=== PATIENT | male | born 1935 | race Asian ===

== ENCOUNTER 2019-08-09 07:51 | Inpatient (IN) | payer MEDICARE, OTHER ==
[~2019-08-09] VITALS: Ht 167.6 cm; Wt 55.6 kg
[~2019-08-09 07:51] MED LIST: ALLO100T PO; ASPI-556 PO; FOLI1 PO; MONT5TAB13 PO; SIMV-259 PO; TERA1CAP7 PO
[2019-08-09] MEDS ORDERED: SODIUM CHLORIDE 0.9% 1,000 ML IV ONE ×3 (08:15→10:15)
[2019-08-09] MEDS ORDERED: LOPERAMIDE HCL 2 MG CAPSULE PO ONE (08:15)
[2019-08-09] MEDS ORDERED: ACETAMINOPHEN 1000 MG/ISO-OSM 100 ML IV ONE (08:15)
[2019-08-09 09:23] LABS: BASOPHILS % (AUTO) 0.3 % (0.0-2.0); EOSINOPHILS % (AUTO) 0.2 % (1.0-6.0); HEMATOCRIT 38.8 % (41-53); HEMOGLOBIN 12.2 g/dL (13.5-17.5); LYMPHOCYTES # (AUTO) 0.6 K/uL (1.0-4.8); MEAN CORPUSCULAR HEMOGLOBIN 23.9 pg (26.0-34.0); MEAN CORPUSCULAR HGB CONC 31.3 G/dL (31.0-37.0); MEAN CORPUSCULAR VOLUME 76 fL (80-100); MONOCYTES % (AUTO) 12.9 % (2.0-9.0); NEUTROPHILS # (AUTO) 6.1 K/uL (1.8-7.7); NEUTROPHILS % (AUTO) 78.6 % (40.0-70.0); PLATELET COUNT (AUTO) 156 K/uL (150-450); RED BLOOD CELL COUNT(AUTO) 5.09 MIL/uL (4.50-5.90); RED CELL DISTRIBUTION WIDTH 14.5 % (11.5-14.5)
[2019-08-09 09:32] LABS: ANION GAP 10 mmol/L (8-16); CALCIUM, TOTAL 8.5 mg/dL (8.8-10.5); CARBON DIOXIDE 25 mmol/L (22-29); CHLORIDE 106 mmol/L (98-107); CREATININE 1.39 mg/dL (0.60-1.30); GLOMERULAR FILTR. RATE CALC 49 mL/min (>60); GLUCOSE,RANDOM 163 mg/dL (70-110); POTASSIUM 4.1 mmol/L (3.5-5.1); SODIUM SERUM 141 mmol/L (136-145); UREA NITROGEN, BLOOD 49 mg/dL (7-18)
[2019-08-09 09:34] LABS: PROTHROMBIN TIME 10.5 SEC (9.4-11.6)
[2019-08-09 09:39] LABS: ALANINE AMINOTRANSFERASE 76 U/L (12-78); ALKALINE PHOSPHATASE 50 U/L (46-116); ASPARTATE AMINOTRANSFERASE 52 U/L (15-37); BILIRUBIN,TOTAL 1.1 mg/dL (0.1-1.0); LIPASE 232 U/L (73-393); TOTAL PROTEIN, SERUM 6.3 g/dL (6.4-8.2)
[2019-08-09 09:41] LABS: LACTIC ACID 3.3 mmol/L (0.4-2.0)
[2019-08-09] MEDS ORDERED: ONDANSETRON HCL 4 MG/2 ML VIAL IVP PRN ×2 (10:15→20:00)
[2019-08-09] MEDS ORDERED: ACETAMINOPHEN 325 MG TABLET PO PRN ×2 (10:15→20:00)
[2019-08-09 16:57] VITALS: BP 136/77
[2019-08-09] MEDS ORDERED: INFLUENZA VIRUS VACCINE QVS 2019-20 (3YR+)/PF 60 MCG/0.5 ML SYRINGE IM ONE (19:00)
[2019-08-09] MEDS ORDERED: MORPHINE SULFATE 2 MG/ML SYRINGE IVP PRN (20:00)
[2019-08-09] MEDS ORDERED: HYDROCODONE/ACETAMINOPHEN 5-325 MG TABLET PO PRN (20:00)
[2019-08-09] MEDS ORDERED: BISACODYL 10 MG RECTAL RECTAL SUPPOSITORY PR PRN (20:00)
[2019-08-09] MEDS ORDERED: MAGNESIUM HYDROXIDE SUSPENSION 30 ML UDCUP PO PRN (20:00)
[2019-08-09] MEDS ORDERED: ZOLPIDEM TARTRATE 5 MG TABLET PO PRN (20:00)
[2019-08-09 20:12] VITALS: BP 104/59
[2019-08-09] MEDS: PANTOPRAZOLE SODIUM 40 MG/VIAL IVP SCH (21:17)
[2019-08-09] MEDS: ALLOPURINOL 100 MG TABLET PO SCH (21:17)
[2019-08-09] MEDS: DOCUSATE SODIUM 100 MG CAPSULE PO SCH (21:18)
[2019-08-09] MEDS: PIPERACILLIN SODIUM/TAZOBACTAM 2.25 GM in DEXTROSE 5%-WATER 50 ML IV SCH (21:34)
[2019-08-10] VITALS: BP 111/56
[2019-08-10] MEDS: PIPERACILLIN SODIUM/TAZOBACTAM 2.25 GM in DEXTROSE 5%-WATER 50 ML IV SCH ×4 (04:56→21:54)
[2019-08-10 05:09] VITALS: BP 107/57
[2019-08-10 08:10] VITALS: BP 130/59
[2019-08-10] MEDS: DOCUSATE SODIUM 100 MG CAPSULE PO SCH ×2 (08:39→20:35)
[2019-08-10] MEDS: ALLOPURINOL 100 MG TABLET PO SCH ×2 (08:42→20:35)
[2019-08-10] MEDS: SIMVASTATIN 10 MG TABLET PO SCH (08:42)
[2019-08-10] MEDS: MONTELUKAST SODIUM 10 MG TABLET PO SCH (08:42)
[2019-08-10] MEDS: FOLIC ACID 1 MG TABLET PO SCH (08:43)
[2019-08-10] MEDS: TERAZOSIN HCL 2 MG CAPSULE PO SCH (08:43)
[2019-08-10] MEDS: PANTOPRAZOLE SODIUM 40 MG/VIAL IVP SCH ×2 (08:43→20:35)
[2019-08-10 11:39] VITALS: BP 100/58
[2019-08-10 15:18] VITALS: BP 107/59
[2019-08-10 17:23] LABS: BASOPHILS % (AUTO) 0.3 % (0.0-2.0); EOSINOPHILS % (AUTO) 1.9 % (1.0-6.0); HEMATOCRIT 30.9 % (41-53); LYMPHOCYTES % (AUTO) 20.7 % (22.0-44.0); MEAN CORPUSCULAR HEMOGLOBIN 24.6 pg (26.0-34.0); MEAN CORPUSCULAR HGB CONC 32.2 G/dL (31.0-37.0); MEAN CORPUSCULAR VOLUME 76 fL (80-100); MONOCYTES # (AUTO) 0.5 K/uL (0.1-1.0); MONOCYTES % (AUTO) 10.5 % (2.0-9.0); NEUTROPHILS # (AUTO) 3.1 K/uL (1.8-7.7); NEUTROPHILS % (AUTO) 66.6 % (40.0-70.0); PLATELET COUNT (AUTO) 116 K/uL (150-450); RED BLOOD CELL COUNT(AUTO) 4.06 MIL/uL (4.50-5.90); RED CELL DISTRIBUTION WIDTH 14.6 % (11.5-14.5)
[2019-08-10 17:37] LABS: ANION GAP 2 mmol/L (8-16); CALCIUM, TOTAL 7.8 mg/dL (8.8-10.5); CARBON DIOXIDE 28 mmol/L (22-29); CHLORIDE 110 mmol/L (98-107); CREATININE 1.04 mg/dL (0.60-1.30); GLOMERULAR FILTR. RATE CALC > 60 mL/min (>60); GLUCOSE,RANDOM 105 mg/dL (70-110); POTASSIUM 4.1 mmol/L (3.5-5.1); SODIUM SERUM 140 mmol/L (136-145); UREA NITROGEN, BLOOD 17 mg/dL (7-18)
[2019-08-10 17:45] LABS: ALANINE AMINOTRANSFERASE 50 U/L (12-78); ALBUMIN 2.7 g/dL (3.4-5.0); ALKALINE PHOSPHATASE 41 U/L (46-116); ASPARTATE AMINOTRANSFERASE 32 U/L (15-37); BILIRUBIN,TOTAL 1.1 mg/dL (0.1-1.0); TOTAL PROTEIN, SERUM 5.5 g/dL (6.4-8.2)
[2019-08-10 19:45] VITALS: BP 107/67
[2019-08-11] VITALS (7 sets, daily range): BP systolic 85–124; BP diastolic 44–74
[2019-08-11] MEDS: PIPERACILLIN SODIUM/TAZOBACTAM 2.25 GM in DEXTROSE 5%-WATER 50 ML IV SCH ×4 (04:23→22:04)
[2019-08-11 06:11] LABS: BASOPHILS % (AUTO) 0.5 % (0.0-2.0); EOSINOPHILS % (AUTO) 2.8 % (1.0-6.0); HEMATOCRIT 29.4 % (41-53); HEMOGLOBIN 9.4 g/dL (13.5-17.5); LYMPHOCYTES # (AUTO) 0.7 K/uL (1.0-4.8); LYMPHOCYTES % (AUTO) 16.3 % (22.0-44.0); MEAN CORPUSCULAR HEMOGLOBIN 24.3 pg (26.0-34.0); MEAN CORPUSCULAR VOLUME 76 fL (80-100); MONOCYTES # (AUTO) 0.4 K/uL (0.1-1.0); MONOCYTES % (AUTO) 10.6 % (2.0-9.0); NEUTROPHILS % (AUTO) 69.8 % (40.0-70.0); PLATELET COUNT (AUTO) 113 K/uL (150-450); RED BLOOD CELL COUNT(AUTO) 3.86 MIL/uL (4.50-5.90); RED CELL DISTRIBUTION WIDTH 14.5 % (11.5-14.5)
[2019-08-11 06:26] LABS: ALANINE AMINOTRANSFERASE 39 U/L (12-78); ALBUMIN 2.4 g/dL (3.4-5.0); ALKALINE PHOSPHATASE 40 U/L (46-116); ANION GAP 8 mmol/L (8-16); ASPARTATE AMINOTRANSFERASE 27 U/L (15-37); BILIRUBIN,TOTAL 1.1 mg/dL (0.1-1.0); CALCIUM, TOTAL 7.7 mg/dL (8.8-10.5); CARBON DIOXIDE 26 mmol/L (22-29); CHLORIDE 109 mmol/L (98-107); CREATININE 1.09 mg/dL (0.60-1.30); GLUCOSE,RANDOM 106 mg/dL (70-110); POTASSIUM 3.4 mmol/L (3.5-5.1); SODIUM SERUM 143 mmol/L (136-145); TOTAL PROTEIN, SERUM 5.2 g/dL (6.4-8.2); UREA NITROGEN, BLOOD 12 mg/dL (7-18)
[2019-08-11 06:32] LABS: GLOMERULAR FILTR. RATE CALC > 60 mL/min (>60)
[2019-08-11] MEDS: ALLOPURINOL 100 MG TABLET PO SCH ×2 (09:00→20:20)
[2019-08-11] MEDS: DOCUSATE SODIUM 100 MG CAPSULE PO SCH ×2 (09:00→20:20)
[2019-08-11] MEDS: PANTOPRAZOLE SODIUM 40 MG/VIAL IVP SCH ×2 (09:35→20:20)
[2019-08-11] MEDS ORDERED: SODIUM CHLORIDE 0.9% 1,000 ML IV ONE ×3 (11:00→11:18)
[2019-08-11] MEDS: MONTELUKAST SODIUM 10 MG TABLET PO SCH (14:11)
[2019-08-11] MEDS: FOLIC ACID 1 MG TABLET PO SCH (14:11)
[2019-08-11] MEDS: SIMVASTATIN 10 MG TABLET PO SCH (14:11)
[2019-08-11] MEDS: TERAZOSIN HCL 2 MG CAPSULE PO SCH (14:14)
[2019-08-12 00:10] VITALS: BP 103/53
[2019-08-12] MEDS: PIPERACILLIN SODIUM/TAZOBACTAM 2.25 GM in DEXTROSE 5%-WATER 50 ML IV SCH ×2 (04:45→10:20)
[2019-08-12 04:51] VITALS: BP 121/70
[2019-08-12 06:49] LABS: BASOPHILS % (AUTO) 0.3 % (0.0-2.0); EOSINOPHILS % (AUTO) 2.5 % (1.0-6.0); HEMATOCRIT 27.8 % (41-53); LYMPHOCYTES # (AUTO) 0.8 K/uL (1.0-4.8); LYMPHOCYTES % (AUTO) 14.7 % (22.0-44.0); MEAN CORPUSCULAR HEMOGLOBIN 24.4 pg (26.0-34.0); MEAN CORPUSCULAR HGB CONC 32.3 G/dL (31.0-37.0); MEAN CORPUSCULAR VOLUME 76 fL (80-100); MONOCYTES # (AUTO) 0.6 K/uL (0.1-1.0); MONOCYTES % (AUTO) 10.7 % (2.0-9.0); NEUTROPHILS # (AUTO) 3.9 K/uL (1.8-7.7); NEUTROPHILS % (AUTO) 71.8 % (40.0-70.0); PLATELET COUNT (AUTO) 120 K/uL (150-450); RED BLOOD CELL COUNT(AUTO) 3.68 MIL/uL (4.50-5.90); RED CELL DISTRIBUTION WIDTH 14.2 % (11.5-14.5)
[2019-08-12 07:06] LABS: ALANINE AMINOTRANSFERASE 38 U/L (12-78); ALBUMIN 2.5 g/dL (3.4-5.0); ALKALINE PHOSPHATASE 40 U/L (46-116); ANION GAP 6 mmol/L (8-16); ASPARTATE AMINOTRANSFERASE 26 U/L (15-37); CALCIUM, TOTAL 7.9 mg/dL (8.8-10.5); CARBON DIOXIDE 27 mmol/L (22-29); CHLORIDE 107 mmol/L (98-107); CREATININE 1.05 mg/dL (0.60-1.30); GLUCOSE,RANDOM 102 mg/dL (70-110); POTASSIUM 3.5 mmol/L (3.5-5.1); SODIUM SERUM 140 mmol/L (136-145); TOTAL PROTEIN, SERUM 5.2 g/dL (6.4-8.2); UREA NITROGEN, BLOOD 9 mg/dL (7-18)
[2019-08-12 07:10] LABS: GLOMERULAR FILTR. RATE CALC > 60 mL/min (>60)
[2019-08-12 07:26] VITALS: BP 132/64
[2019-08-12] MEDS: DOCUSATE SODIUM 100 MG CAPSULE PO SCH ×2 (08:15→20:30)
[2019-08-12] MEDS: SIMVASTATIN 10 MG TABLET PO SCH (08:15)
[2019-08-12] MEDS: MONTELUKAST SODIUM 10 MG TABLET PO SCH (08:16)
[2019-08-12] MEDS: ALLOPURINOL 100 MG TABLET PO SCH ×2 (08:17→20:30)
[2019-08-12] MEDS: FOLIC ACID 1 MG TABLET PO SCH (08:17)
[2019-08-12] MEDS: PANTOPRAZOLE SODIUM 40 MG/VIAL IVP SCH ×2 (08:18→20:30)
[2019-08-12] MEDS: TERAZOSIN HCL 2 MG CAPSULE PO SCH (10:21)
[2019-08-12] MEDS ORDERED: SODIUM CHLORIDE 0.9% 250 ML IV ONE (10:24)
[2019-08-12 11:01] VITALS: BP 106/46
[2019-08-12 15:34] VITALS: BP 126/71
[2019-08-12] MEDS: PIPERACILLIN/TAZO 3.375 GM/D5W 50 ML IV SCH ×2 (16:03→23:08)
[2019-08-12 20:13] VITALS: BP 109/54
[2019-08-13] VITALS (7 sets, daily range): BP systolic 95–129; BP diastolic 54–68
[2019-08-13] MEDS: PIPERACILLIN/TAZO 3.375 GM/D5W 50 ML IV SCH ×4 (04:01→21:31)
[2019-08-13 07:02] LABS: BASOPHILS % (AUTO) 0.5 % (0.0-2.0); EOSINOPHILS % (AUTO) 2.7 % (1.0-6.0); HEMATOCRIT 27.2 % (41-53); HEMOGLOBIN 8.8 g/dL (13.5-17.5); LYMPHOCYTES # (AUTO) 0.7 K/uL (1.0-4.8); LYMPHOCYTES % (AUTO) 13.9 % (22.0-44.0); MEAN CORPUSCULAR HEMOGLOBIN 24.6 pg (26.0-34.0); MEAN CORPUSCULAR HGB CONC 32.2 G/dL (31.0-37.0); MEAN CORPUSCULAR VOLUME 77 fL (80-100); MONOCYTES # (AUTO) 0.7 K/uL (0.1-1.0); MONOCYTES % (AUTO) 13.2 % (2.0-9.0); NEUTROPHILS # (AUTO) 3.5 K/uL (1.8-7.7); NEUTROPHILS % (AUTO) 69.7 % (40.0-70.0); PLATELET COUNT (AUTO) 139 K/uL (150-450); RED BLOOD CELL COUNT(AUTO) 3.55 MIL/uL (4.50-5.90); RED CELL DISTRIBUTION WIDTH 14.4 % (11.5-14.5)
[2019-08-13 07:27] LABS: ALANINE AMINOTRANSFERASE 39 U/L (12-78); ALBUMIN 2.5 g/dL (3.4-5.0); ALKALINE PHOSPHATASE 38 U/L (46-116); ANION GAP 8 mmol/L (8-16); ASPARTATE AMINOTRANSFERASE 26 U/L (15-37); BILIRUBIN,TOTAL 0.8 mg/dL (0.1-1.0); CARBON DIOXIDE 26 mmol/L (22-29); CHLORIDE 105 mmol/L (98-107); CREATININE 1.04 mg/dL (0.60-1.30); GLOMERULAR FILTR. RATE CALC > 60 mL/min (>60); GLUCOSE,RANDOM 100 mg/dL (70-110); POTASSIUM 3.1 mmol/L (3.5-5.1); SODIUM SERUM 139 mmol/L (136-145); TOTAL PROTEIN, SERUM 5.4 g/dL (6.4-8.2); UREA NITROGEN, BLOOD 8 mg/dL (7-18)
[2019-08-13] MEDS: MONTELUKAST SODIUM 10 MG TABLET PO SCH (08:14)
[2019-08-13] MEDS: PANTOPRAZOLE SODIUM 40 MG/VIAL IVP SCH ×2 (08:14→20:07)
[2019-08-13] MEDS: FOLIC ACID 1 MG TABLET PO SCH (08:14)
[2019-08-13] MEDS: ALLOPURINOL 100 MG TABLET PO SCH ×2 (08:14→20:07)
[2019-08-13] MEDS: TERAZOSIN HCL 2 MG CAPSULE PO SCH (08:14)
[2019-08-13] MEDS: SIMVASTATIN 10 MG TABLET PO SCH (08:14)
[2019-08-13] MEDS: DOCUSATE SODIUM 100 MG CAPSULE PO SCH ×2 (08:14→20:07)
[2019-08-13] MEDS ORDERED: POTASSIUM CHLORIDE 20 MEQ ER TABLET PO PRN (11:00)
[2019-08-13] MEDS ORDERED: MONT10TA21 PO (11:11)
[2019-08-13] MEDS ORDERED: TERA2CAP10 PO (11:11)
[2019-08-13 11:57] LABS: % IRON SATURATION 9.3 % (30-44)
[2019-08-13] MEDS: IRON DEXTRAN COMPLEX 100 MG in SODIUM CHLORIDE 0.9% 100 ML IV SCH (12:25)
[2019-08-14] MEDS: PIPERACILLIN/TAZO 3.375 GM/D5W 50 ML IV SCH ×4 (04:55→22:30)
[2019-08-14 05:15] VITALS: BP 128/62
[2019-08-14 06:05] LABS: BASOPHILS % (AUTO) 0.7 % (0.0-2.0); EOSINOPHILS % (AUTO) 3.8 % (1.0-6.0); HEMATOCRIT 26.8 % (41-53); HEMOGLOBIN 8.7 g/dL (13.5-17.5); LYMPHOCYTES # (AUTO) 0.7 K/uL (1.0-4.8); LYMPHOCYTES % (AUTO) 17.1 % (22.0-44.0); MEAN CORPUSCULAR HEMOGLOBIN 24.4 pg (26.0-34.0); MEAN CORPUSCULAR HGB CONC 32.3 G/dL (31.0-37.0); MEAN CORPUSCULAR VOLUME 76 fL (80-100); MONOCYTES # (AUTO) 0.7 K/uL (0.1-1.0); MONOCYTES % (AUTO) 15.6 % (2.0-9.0); NEUTROPHILS # (AUTO) 2.7 K/uL (1.8-7.7); NEUTROPHILS % (AUTO) 62.8 % (40.0-70.0); PLATELET COUNT (AUTO) 153 K/uL (150-450); RED BLOOD CELL COUNT(AUTO) 3.54 MIL/uL (4.50-5.90)
[2019-08-14 07:19] LABS: ALBUMIN 2.4 g/dL (3.4-5.0); BILIRUBIN,TOTAL 0.5 mg/dL (0.1-1.0); CALCIUM, TOTAL 8.3 mg/dL (8.8-10.5); CREATININE 1.18 mg/dL (0.60-1.30); POTASSIUM 3.5 mmol/L (3.5-5.1); TOTAL PROTEIN, SERUM 5.5 g/dL (6.4-8.2)
[2019-08-14 07:48] VITALS: BP 137/80
[2019-08-14] MEDS: DOCUSATE SODIUM 100 MG CAPSULE PO SCH ×2 (07:58→20:59)
[2019-08-14] MEDS: SIMVASTATIN 10 MG TABLET PO SCH (08:01)
[2019-08-14] MEDS: ALLOPURINOL 100 MG TABLET PO SCH ×2 (08:01→20:59)
[2019-08-14] MEDS: TERAZOSIN HCL 2 MG CAPSULE PO SCH (08:01)
[2019-08-14] MEDS: FOLIC ACID 1 MG TABLET PO SCH (08:01)
[2019-08-14] MEDS: MONTELUKAST SODIUM 10 MG TABLET PO SCH (08:01)
[2019-08-14] MEDS: PANTOPRAZOLE SODIUM 40 MG/VIAL IVP SCH ×2 (08:02→20:59)
[2019-08-14 10:43] VITALS: BP 112/56
[2019-08-14] MEDS: IRON DEXTRAN COMPLEX 100 MG in SODIUM CHLORIDE 0.9% 100 ML IV SCH (12:39)
[2019-08-14 15:56] VITALS: BP 106/66
[2019-08-14 20:13] VITALS: BP 90/51
[2019-08-15 00:13] VITALS: BP 109/68
[2019-08-15] MEDS: PIPERACILLIN/TAZO 3.375 GM/D5W 50 ML IV SCH ×2 (04:02→10:06)
[2019-08-15 05:11] VITALS: BP 132/73
[2019-08-15 06:40] LABS: BASOPHILS % (AUTO) 0.7 % (0.0-2.0); HEMATOCRIT 29.1 % (41-53); HEMOGLOBIN 9.2 g/dL (13.5-17.5); LYMPHOCYTES # (AUTO) 0.8 K/uL (1.0-4.8); MEAN CORPUSCULAR HGB CONC 31.6 G/dL (31.0-37.0); MEAN CORPUSCULAR VOLUME 76 fL (80-100); MONOCYTES # (AUTO) 0.7 K/uL (0.1-1.0); MONOCYTES % (AUTO) 17.3 % (2.0-9.0); NEUTROPHILS # (AUTO) 2.4 K/uL (1.8-7.7); PLATELET COUNT (AUTO) 181 K/uL (150-450); RED BLOOD CELL COUNT(AUTO) 3.82 MIL/uL (4.50-5.90); RED CELL DISTRIBUTION WIDTH 14.9 % (11.5-14.5)
[2019-08-15 06:51] LABS: ALBUMIN 2.6 g/dL (3.4-5.0); BILIRUBIN,TOTAL 0.5 mg/dL (0.1-1.0); CALCIUM, TOTAL 8.7 mg/dL (8.8-10.5); CREATININE 1.22 mg/dL (0.60-1.30); POTASSIUM 3.9 mmol/L (3.5-5.1); TOTAL PROTEIN, SERUM 5.9 g/dL (6.4-8.2)
[2019-08-15 07:13] VITALS: BP 154/84
[2019-08-15] MEDS: FOLIC ACID 1 MG TABLET PO SCH (08:16)
[2019-08-15] MEDS: PANTOPRAZOLE SODIUM 40 MG/VIAL IVP SCH (08:16)
[2019-08-15] MEDS: SIMVASTATIN 10 MG TABLET PO SCH (08:16)
[2019-08-15] MEDS: MONTELUKAST SODIUM 10 MG TABLET PO SCH (08:16)
[2019-08-15] MEDS: TERAZOSIN HCL 2 MG CAPSULE PO SCH (08:16)
[2019-08-15] MEDS: ALLOPURINOL 100 MG TABLET PO SCH (08:16)
[2019-08-15] MEDS: DOCUSATE SODIUM 100 MG CAPSULE PO SCH (08:16)
[2019-08-15] MEDS ORDERED: SODIUM CHLORIDE 0.9% 250 ML IV ONE (10:10)
[2019-08-15 11:21] VITALS: BP 100/50
[2019-08-15] MEDS: IRON DEXTRAN COMPLEX 100 MG in SODIUM CHLORIDE 0.9% 100 ML IV SCH (12:21)
[2019-08-15] MEDS ORDERED: PANT40TA25 PO ×2 (15:13→15:38)
[2019-08-15 15:32] VITALS: BP 116/74
== END 2019-08-15 17:15 | disposition home or self-care (01) | DRG 377 ==
LOC: EMS 07:51 → 5N 15:31
PROVIDERS: ADMIT Hospitalist; ATTEND Hospitalist
PROC: 3E02340 Introduction of Influenza Vaccine into Muscle, Percutaneous Approach (ICD-10-PCS; 2019-08-09)
PROC: 0DB68ZX Excision of Stomach, Via Natural or Artificial Opening Endoscopic, Diagnostic (ICD-10-PCS; principal; 2019-08-11 12:15)
DX: K26.4 Chronic or unspecified duodenal ulcer with hemorrhage (principal); E43 Unspecified severe protein-calorie malnutrition; E87.2 Acidosis; N17.9 Acute kidney failure, unspecified; D62 Acute posthemorrhagic anemia; Z68.1 Body mass index [BMI] 19.9 or less, adult; M10.9 Gout, unspecified; E78.5 Hyperlipidemia, unspecified; E87.6 Hypokalemia; E03.9 Hypothyroidism, unspecified; I10 Essential (primary) hypertension; J44.9 Chronic obstructive pulmonary disease, unspecified; K22.2 Esophageal obstruction; K25.9 Gastric ulcer, unspecified as acute or chronic, without hemorrhage or perforation; N40.0 Benign prostatic hyperplasia without lower urinary tract symptoms; Z96.649 Presence of unspecified artificial hip joint; Z87.891 Personal history of nicotine dependence; Z79.82 Long term (current) use of aspirin; Z79.899 Other long term (current) drug therapy; Z23 Encounter for immunization
CPT/HCPCS: 74176; 82271; 83540; 83550; 83605; 84132; 88305; 88312; 88313; 90686; 93005; 96365; 99291; C9113; J0131; J1750; J2543; J7030; J7050; J7060

== ENCOUNTER → 2019-09-14 | Outpatient (CLI) | payer MEDICARE, OTHER ==
[~2019-09-14] MED LIST changes: -ALLO100T PO; -ASPI-556 PO; +MONT10TA21 PO; -MONT5TAB13 PO; +PANT40TA25 PO; -TERA1CAP7 PO; +TERA2CAP10 PO
[2019-09-14 15:23] LABS: BASOPHILS % (AUTO) 0.7 % (0.0-2.0); HEMATOCRIT 39.1 % (41-53); HEMOGLOBIN 12.3 g/dL (13.5-17.5); LYMPHOCYTES # (AUTO) 0.9 K/uL (1.0-4.8); LYMPHOCYTES % (AUTO) 25.2 % (22.0-44.0); MEAN CORPUSCULAR HEMOGLOBIN 22.9 pg (26.0-34.0); MEAN CORPUSCULAR HGB CONC 31.4 G/dL (31.0-37.0); MEAN CORPUSCULAR VOLUME 73 fL (80-100); MONOCYTES # (AUTO) 0.5 K/uL (0.1-1.0); MONOCYTES % (AUTO) 13.9 % (2.0-9.0); NEUTROPHILS # (AUTO) 2.1 K/uL (1.8-7.7); NEUTROPHILS % (AUTO) 57.2 % (40.0-70.0); PLATELET COUNT (AUTO) 160 K/uL (150-450); RED BLOOD CELL COUNT(AUTO) 5.36 MIL/uL (4.50-5.90); RED CELL DISTRIBUTION WIDTH 13.6 % (11.5-14.5)
== END | disposition home or self-care (01) ==
LOC: LABMN 15:01
PROVIDERS: ATTEND Internal Medicine Gastroenterology
DX: K26.3 Acute duodenal ulcer without hemorrhage or perforation (principal); J44.9 Chronic obstructive pulmonary disease, unspecified; I10 Essential (primary) hypertension; Z87.891 Personal history of nicotine dependence

== ENCOUNTER 2024-08-10 10:27 | Inpatient (IN) | payer MEDICARE, OTHER ==
[~2024-08-10] VITALS: Ht 154.9 cm; Wt 38.7 kg
[2024-08-10] VITALS (8 sets, daily range): BP systolic 68; BP diastolic 43; PULSE 96–118; RESP 23–31; TEMP 94.2; O2SAT 0–100
[~2024-08-10 10:27] MED LIST changes: +FOLI-130 PO; -FOLI1 PO; +MONT-35 PO; -MONT10TA21 PO; +PANT-31 PO; -PANT40TA25 PO
[2024-08-10] MEDS ORDERED: 0.9% SODIUM CHLORIDE 10 ML SYRINGE IVP PRN (11:00)
[2024-08-10] MEDS: SODIUM CHLORIDE 0.9% 1,200 ML IV ONE (11:01)
[2024-08-10] MEDS: NALOXONE HCL 1 MG/ML 2 ML SYRINGE IVP ONE (11:09)
[2024-08-10] MEDS: PHENYLEPHRINE HCL IN 0.9% NACL 400 MCG/10 ML SYRINGE IVP ONE ×2 (11:11→14:51)
[2024-08-10 11:21] LABS: ABG BASE EXCESS -17.4 mmol/L (-2.0-3.0); ABG CARBOXYHEMOGLOBIN 0.4 % (0.5-1.5); ABG HCO3 12.8 mmol/L (21.0-28.0); ABG METHEMOGLOBIN 1.1 % (0.0-1.5); ABG OXYGEN CONTENT 18.4 mL/dL (15.0-23.0); ABG OXYGEN SATURATION 99.7 % (94.0-98.0); ABG OXYHEMOGLOBIN 98.2 % (94.0-98.0); ABG PCO2 17 mmHg (35.0-48.0); ABG PH 7.338 (7.350-7.450); ABG TOTAL HEMOGLOBIN 12.1 G/dL (13.5-17.5); ALLEN TEST, BLOOD GAS Positive; O2 DEVICE,BLOOD GAS BIPAP (ROOM AIR); PO2, ARTERIAL BG 573.4 mmHg (83.0-108.0); SITE, BLOOD GAS LFT RADIAL; SOURCE, BLOOD GAS ARTERIAL
[2024-08-10 11:22] LABS: INSPIRATORY TIME, BG 0.9 SEC; PRESSURE SUPPORT, BG 11 cm H2O; SPONTANEOUS VT, BG 934 ml
[2024-08-10] MEDS: NOREPINEPHRINE 8 MG/0.9 % NACL 250 ML IV PRN (11:27)
[2024-08-10] MEDS: CefTRIAXone 1 GM/DEXTROSE 50 ML IV ONE (12:02)
[2024-08-10] MEDS: VANCOMYCIN 1.25 GM/WATER(PEG) 250 ML IV ONE (12:09)
[2024-08-10 12:34] LABS: BASOPHILS % (AUTO) 0.3 % (0.0-2.0); EOSINOPHILS % (AUTO) 0.1 % (1.0-6.0); HEMATOCRIT 45.6 % (41-53); HEMOGLOBIN 13.9 g/dL (13.5-17.5); LYMPHOCYTES # (AUTO) 0.4 K/uL (1.0-4.8); MEAN CORPUSCULAR HEMOGLOBIN 25.1 pg (26.0-34.0); MEAN CORPUSCULAR HGB CONC 30.6 G/dL (31.0-37.0); MEAN CORPUSCULAR VOLUME 82 fL (80-100); MONOCYTES # (AUTO) 0.6 K/uL (0.1-1.0); MONOCYTES % (AUTO) 8.7 % (2.0-9.0); NEUTROPHILS # (AUTO) 5.8 K/uL (1.8-7.7); NEUTROPHILS % (AUTO) 84.9 % (40.0-70.0); PLATELET COUNT (AUTO) 90 K/uL (150-450); RED BLOOD CELL COUNT(AUTO) 5.55 MIL/uL (4.50-5.90); RED CELL DISTRIBUTION WIDTH 15.8 % (11.5-14.5); WHITE BLOOD COUNT (AUTO) 6.8 K/uL (4.5-11.0)
[2024-08-10 12:44] LABS: B-TYPE NATRIURETIC PEPTIDE 100 pg/mL (0-100)
[2024-08-10 12:51] LABS: ANION GAP 25 mmol/L (8-16); CALCIUM, TOTAL 7.8 mg/dL (8.8-10.5); CARBON DIOXIDE 14 mmol/L (22-29); CHLORIDE 108 mmol/L (98-107); CREATININE 3.54 mg/dL (0.60-1.30); GLOMERULAR FILTR. RATE CALC 16 mL/min (>60); GLUCOSE,RANDOM 101 mg/dL (70-110); POTASSIUM 4.9 mmol/L (3.5-5.1); SODIUM SERUM 147 mmol/L (136-145); UREA NITROGEN, BLOOD 49 mg/dL (7-18)
[2024-08-10 12:58] LABS: ALANINE AMINOTRANSFERASE 12 U/L (12-78); ALBUMIN 2.8 g/dL (3.4-5.0); ALKALINE PHOSPHATASE 68 U/L (46-116); ASPARTATE AMINOTRANSFERASE 39 U/L (15-37); TOTAL PROTEIN, SERUM 6.3 g/dL (6.4-8.2)
[2024-08-10 13:00] LABS: TROPONIN I-HIGH SENSITIVITY 110 ng/L (<76)
[2024-08-10 13:14] LABS: APPEARANCE,URINE CLEAR (CLEAR); COLOR,URINE YELLOW (YELLOW); GLUCOSE, URINE (UA) NEGATIVE (NEGATIVE); KETONES,URINE NEGATIVE (NEGATIVE); LEUKOCYTE ESTERASE ,URINE NEGATIVE (NEGATIVE); NITRATE,URINE NEGATIVE (NEGATIVE); OCCULT BLOOD,URINE NEGATIVE (NEGATIVE); PROTEIN,URINE 30-70 mg/dL (NEGATIVE); SPECIFIC GRAVITIY, URINE 1.026 (1.003-1.030)
[2024-08-10 13:14] LABS: LACTIC ACID 7.4 mmol/L (0.4-2.0)
[2024-08-10 13:18] LABS: THYROID STIMULATING HORMONE 70.36 uIU/mL (0.36-3.74)
[2024-08-10 13:23] LABS: ALCOHOL, URINE DRUG SCREEN NEGATIVE (NEGATIVE); AMPHET/METH SCREEN,URINE NEGATIVE (NEGATIVE); BARBITURATE SCREEN, URINE NEGATIVE (NEGATIVE); BENZODIAZEPINES SCREEN,URINE NEGATIVE (NEGATIVE); CANNABINOID SCREEN,URINE NEGATIVE (NEGATIVE); COCAINE SCREEN,URINE NEGATIVE (NEGATIVE); METHADONE SCREEN, URINE NEGATIVE (NEGATIVE); OPIATE SCREEN,URINE NEGATIVE (NEGATIVE); PHENCYCLIDINE SCREEN,URINE NEGATIVE (NEGATIVE)
[2024-08-10 13:24] LABS: BILIRUBIN,URINE SMALL (NEGATIVE)
[2024-08-10] MEDS: ATROPINE SULFATE 0.1 MG/ML 10 ML SYRINGE IVP ONE (14:50)
[2024-08-10] MEDS: SODIUM CHLORIDE 0.9% 1,000 ML IV ONE (15:21)
[2024-08-10] MEDS: MIDAZOLAM HCL 2 MG/2 ML VIAL IVP ONE (15:24)
[2024-08-10 15:30] LABS: ABG BASE EXCESS -20.3 mmol/L (-2.0-3.0); ABG CARBOXYHEMOGLOBIN 0.3 % (0.5-1.5); ABG HCO3 10.6 mmol/L (21.0-28.0); ABG METHEMOGLOBIN 1.3 % (0.0-1.5); ABG OXYGEN CONTENT 17.7 mL/dL (15.0-23.0); ABG OXYGEN SATURATION 99.7 % (94.0-98.0); ABG OXYHEMOGLOBIN 98.1 % (94.0-98.0); ABG PCO2 22 mmHg (35.0-48.0); ABG TOTAL HEMOGLOBIN 11.9 G/dL (13.5-17.5); SOURCE, BLOOD GAS ARTERIAL
[2024-08-10 15:31] LABS: ABG PH 7.194 (7.350-7.450); O2 DEVICE,BLOOD GAS VENTILATOR (ROOM AIR); PO2, ARTERIAL BG 464.7 mmHg (83.0-108.0); SITE, BLOOD GAS ARTERIAL LINE; VT, ABG 400 ml
[2024-08-10 15:32] LABS: PEEP,BG 5 cm H2O; SPONTANEOUS VT, BG 493 ml
[2024-08-10] MEDS: PROPOFOL 1000 MG/ISO-OSM 100 ML IV PRN (16:04)
[2024-08-10] MEDS: MIDAZOLAM HCL 100 MG in SODIUM CHLORIDE 0.9% 180 ML IV PRN (16:16)
[2024-08-10] MEDS: EPINEPHrine 5 MG in DEXTROSE 5%-WATER 245 ML IV PRN (16:52)
[2024-08-10] MEDS: SODIUM BICARBONATE 100 MEQ in DEXTROSE 5%-WATER 1,000 ML IV ONE (17:42)
[2024-08-10] MEDS ORDERED: VANCOMYCIN 1GM/WATER(PEG/NADA) 200 ML IV PRN (17:45)
[2024-08-10] MEDS ORDERED: ZOLPIDEM TARTRATE 5 MG TABLET PO PRN (18:00)
[2024-08-10] MEDS ORDERED: HYDROCODONE/ACETAMINOPHEN 5-325 MG TABLET PO PRN (18:00)
[2024-08-10] MEDS ORDERED: IPRATROPIUM BROMIDE 0.5 MG/2.5 ML NEB SOLUTION NEB PRN (18:00)
[2024-08-10] MEDS ORDERED: BISACODYL 10 MG RECTAL RECTAL SUPPOSITORY PR PRN (18:00)
[2024-08-10] MEDS ORDERED: ONDANSETRON HCL 4 MG/2 ML VIAL IVP PRN (18:00)
[2024-08-10] MEDS ORDERED: ALBUTEROL SULFATE 2.5 MG/0.5 ML NEB SOLUTION NEB PRN (18:00)
[2024-08-10] MEDS ORDERED: MAGNESIUM HYDROXIDE SUSPENSION 30 ML UDCUP PO PRN (18:00)
[2024-08-10] MEDS ORDERED: ACETAMINOPHEN 325 MG TABLET PO PRN (18:00)
[2024-08-10] MEDS: PIPERACILLIN SODIUM/TAZOBACTAM 2.25 GM in DEXTROSE 5%-WATER 50 ML IV SCH (18:13)
[2024-08-10 20:16] LABS: TROPONIN I-HIGH SENSITIVITY 327 ng/L (<76)
[2024-08-10] MEDS: DOCUSATE SODIUM 100 MG CAPSULE PO SCH (21:00)
[2024-08-10] MEDS: BUDESONIDE 0.5 MG/2 ML NEB SOLUTION NEB SCH (21:51)
[2024-08-11] VITALS (12 sets, daily range): BP systolic 99–115; BP diastolic 50–76; PULSE 10–121; RESP 25–31; TEMP 93.4–97.8; O2SAT 0–92
[2024-08-11] MEDS: ETHYL ALCOHOL 62% ANTISEPTIC NASAL SANITIZER 0.6 ML AMPUL NASAL SCH (00:49)
[2024-08-11] MEDS: HEPARIN SODIUM,PORCINE 5,000 UNITS/ML VIAL SQ SCH (00:51)
[2024-08-11] MEDS ORDERED: SODIUM CHLORIDE 0.9% 250 ML IV ONE (00:55)
[2024-08-11 03:58] LABS: TROPONIN I-HIGH SENSITIVITY 353 ng/L (<76)
[2024-08-11 05:15] LABS: ABG CARBOXYHEMOGLOBIN 0.2 % (0.5-1.5); ABG HCO3 10.5 mmol/L (21.0-28.0); ABG METHEMOGLOBIN 0.2 % (0.0-1.5); ABG OXYGEN CONTENT 18.7 mL/dL (15.0-23.0); ABG OXYGEN SATURATION 98.9 % (94.0-98.0); ABG OXYHEMOGLOBIN 98.5 % (94.0-98.0); ABG PCO2 23 mmHg (35.0-48.0); ABG TOTAL HEMOGLOBIN 13.3 G/dL (13.5-17.5); SOURCE, BLOOD GAS ARTERIAL; TEMPERATURE, FAHRENHEIT, BG 97.8 FAHREN (96.0-98.6)
[2024-08-11 05:57] LABS: CALCIUM, TOTAL 6.5 mg/dL (8.8-10.5); CREATININE 3.74 mg/dL (0.60-1.30); VANCOMYCIN,RANDOM 20.5 mcg/mL (25.0-50.0)
[2024-08-11 06:03] LABS: ABG PH 7.154 (7.350-7.450); PO2, ARTERIAL BG 165.2 mmHg (83.0-108.0); SITE, BLOOD GAS ARTERIAL LINE
[2024-08-11 06:04] LABS: ABG A-A DIFF O2 166.3 mmHg (10-20.0); O2 DEVICE,BLOOD GAS VENT (ROOM AIR); PEEP,BG 5 cm H2O; VT, ABG 400 ml
[2024-08-11 06:06] LABS: TROPONIN I-HIGH SENSITIVITY 403 ng/L (<76)
[2024-08-11 06:13] LABS: BASOPHILS % (AUTO) 0.1 % (0.0-2.0); EOSINOPHILS % (AUTO) 0.2 % (1.0-6.0); HEMATOCRIT 40.4 % (41-53); HEMOGLOBIN 12.3 g/dL (13.5-17.5); LYMPHOCYTES # (AUTO) 0.7 K/uL (1.0-4.8); LYMPHOCYTES % (AUTO) 8.4 % (22.0-44.0); MEAN CORPUSCULAR HEMOGLOBIN 25.2 pg (26.0-34.0); MEAN CORPUSCULAR HGB CONC 30.5 G/dL (31.0-37.0); MEAN CORPUSCULAR VOLUME 83 fL (80-100); MONOCYTES # (AUTO) 0.6 K/uL (0.1-1.0); MONOCYTES % (AUTO) 7.4 % (2.0-9.0); NEUTROPHILS # (AUTO) 6.7 K/uL (1.8-7.7); NEUTROPHILS % (AUTO) 83.9 % (40.0-70.0); RED BLOOD CELL COUNT(AUTO) 4.88 MIL/uL (4.50-5.90)
[2024-08-11 06:19] LABS: WHITE BLOOD COUNT (AUTO) 9.4 K/uL (4.5-11.0)
[2024-08-11 06:38] LABS: PLATELET COUNT (AUTO) 51 K/uL (150-450)
[2024-08-11] MEDS ORDERED: PHENYLEPHRINE 200 MG/D5%-WATER 250 ML IV PRN (08:00)
[2024-08-11] MEDS: LEVOTHYROXINE SODIUM 100 MCG VIAL IVP SCH (09:01)
[2024-08-11] MEDS: PANTOPRAZOLE SODIUM 40 MG/VIAL IVP SCH (09:01)
[2024-08-11] MEDS: SODIUM BICARBONATE 100 MEQ in DEXTROSE 5%-WATER 1,000 ML IV SCH (10:19)
[2024-08-11] MEDS: DOPamine 400MG/D5W[STANDARD] 250 ML IV PRN (10:21)
[2024-08-11] MEDS: VANCOMYCIN 500 MG/WATER(PEG) 100 ML IV ONE (10:22)
[2024-08-11] MEDS: NOREPINEPHRINE 8 MG/0.9 % NACL 250 ML IV PRN (13:15)
[2024-08-11] MEDS: VASOPRESSIN 40 UNITS in DEXTROSE 5%-WATER 98 ML IV PRN (13:17)
[2024-08-11] MEDS: MORPHINE SULFATE 2 MG/ML SYRINGE IVP PRN (15:47)
[2024-08-11] MEDS: CALCIUM GLUCONATE 1,000 MG in DEXTROSE 5%-WATER 50 ML IV SCH (16:46)
== END 2024-08-12 00:12 | DRG 871 ==
LOC: EMS 10:27 → EDH 16:10 → ICU 21:40
PROVIDERS: ADMIT Hospitalist; ATTEND Hospitalist
PROC: 05HN33Z Insertion of Infusion Device into Left Internal Jugular Vein, Percutaneous Approach (ICD-10-PCS; principal; 2024-08-10)
PROC: B544ZZA Ultrasonography of Left Jugular Veins, Guidance (ICD-10-PCS; 2024-08-10)
PROC: 04HY32Z Insertion of Monitoring Device into Lower Artery, Percutaneous Approach (ICD-10-PCS; 2024-08-10)
PROC: 5A09357 Assistance with Respiratory Ventilation, Less than 24 Consecutive Hours, Continuous Positive Airway Pressure (ICD-10-PCS; 2024-08-10)
PROC: 5A1945Z Respiratory Ventilation, 24-96 Consecutive Hours (ICD-10-PCS; 2024-08-10)
PROC: 0BH17EZ Insertion of Endotracheal Airway into Trachea, Via Natural or Artificial Opening (ICD-10-PCS; 2024-08-10)
DX: A41.9 Sepsis, unspecified organism (principal); E43 Unspecified severe protein-calorie malnutrition; J18.9 Pneumonia, unspecified organism; N17.0 Acute kidney failure with tubular necrosis; J96.01 Acute respiratory failure with hypoxia; R65.21 Severe sepsis with septic shock; R40.20 Unspecified coma; E87.0 Hyperosmolality and hypernatremia; E87.20 Acidosis, unspecified; J44.0 Chronic obstructive pulmonary disease with (acute) lower respiratory infection; Z68.1 Body mass index [BMI] 19.9 or less, adult; Z66 Do not resuscitate; E03.9 Hypothyroidism, unspecified; E78.5 Hyperlipidemia, unspecified; E86.0 Dehydration; D69.59 Other secondary thrombocytopenia; K56.41 Fecal impaction; G93.89 Other specified disorders of brain; I10 Essential (primary) hypertension; J43.9 Emphysema, unspecified; K44.9 Diaphragmatic hernia without obstruction or gangrene; K57.30 Diverticulosis of large intestine without perforation or abscess without bleeding; N40.0 Benign prostatic hyperplasia without lower urinary tract symptoms; Z96.649 Presence of unspecified artificial hip joint; Z51.5 Encounter for palliative care; Z87.891 Personal history of nicotine dependence
CPT/HCPCS: 36600; 70450; 71045; 71250; 72192; 74150; 76700; 80048; 80053; 80202; 80307; 81003; 82805; 83605; 83880; 84145; 84439; 84443; 84484; 85025; 87040; 87077; 87081; 87205; 87481; 93005; 93306; 94002; 94003; 94640; 94660; 99285; C9113; J0171; J0610; J0696; J1644; J2250; J2270; J2370; J2543; J2704; J3490; J7050; J7060; 36415-L1; 36415-TC